=== PATIENT | female | born 2000 | race African-American/Black ===

== ENCOUNTER 2022-06-27 08:34 | Outpatient (CLI) | payer OTHER, SELFPAY ==
[2022-06-27 11:04] LABS: Hepatitis B Surface Antigen* Negative (Negative)
[2022-06-27 11:14] LABS: HIV 1/2/P24 Combo Screen* Negative (Negative)
[2022-06-27 11:21] LABS: Hepatitis C Virus Antibody* Negative (Negative)
[2022-06-27 12:00] LABS: Chlamydia DNA Amplified* Not Detected (No Detected); GC DNA Amplified* Not Detected (No Detected)
[2022-06-28 17:20] LABS: Rapid Plasma Reagin (RPR) Non Reactive (Non Reactive)
== END 2022-06-27 08:35 | disposition home or self-care (01) ==
PROVIDERS: Visit Provider Registered Nurse
DX: Z01.419 Encounter for gynecological examination (general) (routine) without abnormal findings (principal); Z11.3 Encounter for screening for infections with a predominantly sexual mode of transmission; Z11.4 Encounter for screening for human immunodeficiency virus [HIV]
CPT/HCPCS: 86592; 86703; 86803; 87340; 87491; 87591